=== PATIENT | male | born 1985 | race Caucasian/White ===

== ENCOUNTER 2016-11-01 20:25 | Emergency (ER) | payer OTHER ==
[~2016-11-01 20:25] MED LIST: ASCORBIC ACID250 MG; BACLOFEN20 MG; BISACODYL LAXATI5 MG; BISACODYL10 MG/SU; CYMBALTA30 MG; HIPREX1 G; LEVAQUIN250 MG; LEVAQUIN750 MG; NAPROSYN500 MG; NAPROXEN500 MG; OXYCONTIN10 MG; ROXICODONE5 MG
[2016-11-01] MEDS ORDERED: HIPREX1 GM PO (20:51)
[2016-11-01] MEDS ORDERED: OXYBUTYNIN CHLOR5 M2 PO (20:52)
[2016-11-01 21:18] LABS: BASO % 0.1 % (0-2); EOS % 5.4 % (0-7); EOSINOPHIL ABSOLUTE COUNT 0.8 tho/cmm (0.0-0.7); HCT-HEMATOCRIT 43.9 % (36.0-53.5); HGB-HEMOGLOBIN 15.4 gm/dl (13.5-17.0); IMMATURE GRANULOCYTES ABSOLUTE 0.04 tho/cmm (0-0.03); IMMATURE GRANULOCYTES PERCENT 0.3 % (0-0.3); LYMPH % 16.8 % (20-45); LYMPH ABSOLUTE COUNT 2.5 tho/cmm (0.8-4.5); MCHC MEAN CORPUSCULAR HGB CONC 35.1 % (32.0-36.0); MCV (MEAN CELL VOLUME) 88.5 fl (82.0-96.0); MEAN PLATELET VOLUME 9.7 cmc (9.4-12.4); MONO % 5.4 % (0-12); MONOCYTE ABSOLUTE COUNT 0.8 tho/cmm (0.0-1.2); NEUTROPHIL ABSOLUTE COUNT 10.8 tho/cmm (1.6-8.0); NEUTROPHIL-AUTOMATED 10.8 tho/cmm (1.6-8.0); PLATELET COUNT 327 tho/cmm (150-450); RED BLOOD COUNT 4.96 mil/cmm (4.40-5.70); RED CELL DISTRIBUTION WIDTH 12.7 % (12.4-16.4)
[2016-11-01 21:30] LABS: ANION GAP 14 mmol/L (0-20); BLOOD UREA NITROGEN 15 mg/dl (6-24); CALCIUM 8.7 mg/dl (8.5-10.5); CARBON DIOXIDE-VENOUS 23 mmol/L (22-32); CHLORIDE 105 mmol/l (96-110); CREATININE 1.27 mg/dl (0.60-1.30); GLUCOSE 85 mg/dL (70-110); POTASSIUM 3.7 mmol/L (3.7-5.1); SODIUM 138 mmol/L (135-145); eGFR VALUE FOR BLACK 87 mL/Min
== END 2016-11-01 23:14 ==
LOC: EDMED 20:25
PROVIDERS: Emergency Medicine
DX: I82.4Y1 Acute embolism and thrombosis of unspecified deep veins of right proximal lower extremity (principal); R07.9 Chest pain, unspecified; I10 Essential (primary) hypertension; F32.9 Major depressive disorder, single episode, unspecified; Z79.82 Long term (current) use of aspirin; Z79.899 Other long term (current) drug therapy; F17.200 Nicotine dependence, unspecified, uncomplicated
CPT/HCPCS: A9540; A9558